=== PATIENT | male | born 1990 | race Caucasian/White ===

== ENCOUNTER 2017-01-30 11:08 | Emergency (ER) | payer OTHER ==
[2017-01-30 11:37] VITALS: BP 142/68
--- NOTE | 2017-01-30 12:58 | UC ---
UC General HPI - HPI Summary HPI Summary: Patient presents with an unremarkable past medical history. He wants to have STD screening because he is in a new relationship and they are both getting tested. He denies any fever, chills, rashes, penile discharge, or unprotected intercourse. - History of Current Complaint Chief Complaint: UCSTDScreening Stated Complaint: STD TESTING Time Seen by Provider: 01/30/17 12:45 Hx Obtained From: Patient - Allergy/Home Medications Allergies/Adverse Reactions: Allergies Allergy/AdvReac Type Severity Reaction Status Date / Time No Known Allergies Allergy Verified 02/04/16 09:02 Home Medications: Home Medications NK [No Home Medications Reported] 01/30/17 [History Confirmed 01/30/17] PMH/Surg Hx/FS Hx/Imm Hx Previously Healthy: Yes - Surgical History Surgical History: None - Family History Known Family History: Positive: None - Social History Occupation: Student Lives: Dormitory/Roommates Alcohol Use: Occasionally Substance Use Type: None Smoking Status (MU): Never Smoked Tobacco - Immunization History Most Recent Influenza Vaccination: 2016/2017 Review of Systems Constitutional: Negative Skin: Negative Eyes: Negative ENT: Negative Respiratory: Negative Cardiovascular: Negative Gastrointestinal: Negative Genitourinary: Negative Motor: Negative Neurovascular: Negative Musculoskeletal: Negative Neurological: Negative Psychological: Negative All Other Systems Reviewed And Are Negative: Yes Physical Exam Triage Information Reviewed: Yes Vital Signs: Initial Vital Signs Temp 98.7 F 01/30/17 11:30 Pulse 72 01/30/17 11:30 Resp 16 01/30/17 11:30 BP 142/68 01/30/17 11:30 Pulse Ox 100 01/30/17 11:30 Eye Exam: Normal ENT Exam: Normal Dental Exam: Normal Neck exam: Normal Neck: Positive: 1 Respiratory Exam: Normal Cardiovascular Exam: Normal Abdominal Exam: Normal Musculoskeletal Exam: Normal Neurological Exam: Normal Psychological Exam: Normal Skin Exam: Normal Course/Dx - Course Course Of Treatment: Patient presents for routine STD testing with no symtpoms. Rapid Abdet was obtained and is pending, urine GC.CT pending. Discharged home in stable condition. - Differential Dx - Multi-Symptom Differential Diagnoses: Other - STD screening exam Provider Diagnoses: STD screening Discharge - Discharge Plan Condition: Stable Disposition: HOME Patient Education Materials: Safe Sex Practices for Adolescents (ED) Referrals: No Primary Care Phys,NOPCP [Primary Care Provider] - Additional Instructions: Patient presented for routine STD testing, otherwise asymptomatic.
== END 2017-01-30 13:07 | disposition home or self-care (01) ==
LOC: UCEAST 11:08
DX: Z11.3 Encounter for screening for infections with a predominantly sexual mode of transmission (principal); Z11.4 Encounter for screening for human immunodeficiency virus [HIV]
CPT/HCPCS: 36415; 86703; 87491; 87591; 99211; G0463